=== PATIENT | female | born 1965 | race Two or more races ===

== ENCOUNTER 2018-07-15 08:31 | Outpatient (CLI) | payer OTHER ==
[~2018-07-15 08:31] MED LIST: GLUCOTROL; LOSARTAN-HCTZ1 EACH; SYNTHROID88 MCG
== END 2018-07-15 08:35 | disposition home or self-care (01) ==
LOC: SONOGRAMA 08:31
DX: E04.2 Nontoxic multinodular goiter (principal)

== ENCOUNTER 2021-11-14 09:17 | Outpatient (CLI) | payer OTHER | END 2021-11-14 09:18 | disposition home or self-care (01) | LOC: SONOGRAMA 09:17 | PROVIDERS: ATTEND Pathology Anatomic Pathology | DX: C73 Malignant neoplasm of thyroid gland (principal) ==